=== PATIENT | female | born 1975 | race African-American/Black ===

== ENCOUNTER 2017-10-27 14:28 | Day surgery (SDC) | payer OTHER ==
[2017-10-27] MEDS ORDERED: TRIA1CAP6 PO (15:03)
--- NOTE | 2017-10-28 10:01 | RADRPT ---
EXAM DATE/TIME: 10/27/2017 14:59 [facility] COMPARISON : No previous studies available for comparison. INDICATIONS : Consult for Uterine Fibroid Embolization OBJECTIVE: Temperature: 98.4 Heart Rate: 81 Blood Pressure: 160/96 Respiratory: 20 Oximetry: 98 PNEUMONIA VACCINE: HISTORY OF PRESENT ILLNESS: 41-year-old with known fibroids and heavy menstrual bleeding. PAST MEDICAL HISTORY : 1. Hypertension. 2. anemia PAST SURGICAL HISTORY : 1. 2. bowel perforation with temporary colostomy placement/reversal. SOCIAL HISTORY : No alcohol use. Tobacco; none. ALLERGIES: 1. NKDA MEDICATIONS: Triamterene 50/25 mg q.d. PHYSICAL EXAMINATION: CV: Regular rate and rhythm. Lungs: Clear to auscultation. Abdomen: Soft, non-tender. No masses or organomegaly. Positive bowel sounds. IMAGING STUDIES: Outside ultrasound from the doctor's office were reviewed. ASSESSMENT: Symptomatic uterine fibroids. Patient has had no advanced imaging or uterine biopsy but states that s he did undergo Pap smear in her GYNs office which was reportedly normal. Explained in detail the usu al workup prior to fibroid embolization. Details of the procedure itself were also explained. All que stions were addressed. PLAN: Elective uterine fibroid embolization The TIME SPENT: 20 minutes Abhilash Jimenez MD on October 28, 2017 at 9:54 Board Certified Radiologist. This report was verified electronically.
== END 2017-10-27 15:48 | disposition home or self-care (01) ==
LOC: HROP 14:28 → HRIP 14:29 → HROP 15:48
PROVIDERS: ATTEND Obstetrics & Gynecology
DX: D25.9 Leiomyoma of uterus, unspecified (principal)
CPT/HCPCS: 99213; G0463

== ENCOUNTER 2017-11-10 07:18 | Observation (INO) | payer OTHER ==
[~2017-11-10] VITALS: Ht 160 cm; Wt 113.6 kg
[2017-11-10] VITALS (10 sets, daily range): BP systolic 144–187; BP diastolic 82–99; PULSE 72–88; RESP 18–20; TEMP 97.9–98.1; O2SAT 92–98
[~2017-11-10 07:18] MED LIST: TRIA1CAP6 PO
[2017-11-10] MEDS ORDERED: CHOL1CAP34 PO (07:41)
[2017-11-10] MEDS: SODIUM CHLOR 0.9% 1000 ML INJ 1,000 ML IV SCH ×2 (08:00→18:31)
[2017-11-10] MEDS ORDERED: ceFAZolin 2 GM PREMIX 50 ML IV SCH (08:00)
[2017-11-10] MEDS ORDERED: DIAZEPAM 10 MG TAB PO SCH (08:00)
[2017-11-10] MEDS ORDERED: KETOROLAC TROMETHAMINE 30 MG/ML (IVP) VIAL IV PUSH SCH (08:00)
[2017-11-10 08:10] LABS: AUTOMATED NEUTROPHIL # 3.4 TH/MM3 (1.8-7.7); BASOPHIL # 0.1 TH/MM3 (0-0.2); BASOPHIL % 0.8 % (0.0-2.0); EOSINOPHIL # 0.1 TH/MM3 (0-0.4); EOSINOPHIL % 1.6 % (0.0-4.0); HEMATOCRIT 34.9 % (35.0-46.0); HEMOGLOBIN 11.7 GM/DL (11.6-15.3); LYMPH % 33.8 % (9.0-44.0); LYMPHOCYTE # 2.1 TH/MM3 (1.0-4.8); MEAN CELL VOLUME 70.3 FL (80.0-100.0); MEAN CORPUSCULAR HEMOGLOBIN 23.5 PG (27.0-34.0); MEAN CORPUSCULAR HGB CONC 33.4 % (32.0-36.0); MEAN PLATELET VOLUME 8.3 FL (7.0-11.0); MONO % 9.7 % (0.0-8.0); MONOCYTE # 0.6 TH/MM3 (0-0.9); NEUT % 54.1 % (16.0-70.0); PLATELET COUNT 244 TH/MM3 (150-450); RED BLOOD COUNT 4.96 MIL/MM3 (4.00-5.30); RED CELL DISTRIBUTION WIDTH 19.6 % (11.6-17.2); WHITE BLOOD COUNT 6.3 TH/MM3 (4.0-11.0)
[2017-11-10 08:17] LABS: INTERNATIONAL NORMALIZED RATIO 1.1 RATIO; PROTHROMBIN TIME - PATIENT 11.3 SEC (9.8-11.6)
[2017-11-10 08:45] LABS: BICARBONATE 27.3 MEQ/L (21.0-32.0); CALCIUM 9.1 MG/DL (8.5-10.1); CREATININE 0.8 MG/DL (0.50-1.00)
[2017-11-10] MEDS ORDERED: NALOXONE HCL 0.4 MG/ML AMP IV PUSH PRN (10:45)
[2017-11-10] MEDS ORDERED: MORPHINE SULFATE 30 MG/30 ML PCA IV SCH (10:45)
[2017-11-10] MEDS: ONDANSETRON HCL 4 MG/2 ML VIAL IV PUSH SCH ×2 (10:55→17:57)
[2017-11-10] MEDS ORDERED: MIDAZOLAM HCL 2 MG/2 ML VIAL ONE ×4 (11:38→12:46)
[2017-11-10] MEDS ORDERED: fentaNYL CITRATE 250 MCG/5 ML AMP ONE (11:38)
[2017-11-10] MEDS ORDERED: HYDROmorphone HCL PF 2 MG/ML VIAL ONE (12:38)
[2017-11-10] MEDS ORDERED: ACETAMINOPHEN 325 MG TAB PO PRN (13:45)
--- NOTE | 2017-11-10 13:49 | PD.RAD ---
Post Procedure Progress Note Pre Procedure Diagnosis: (1) Menometrorrhagia (2) Uterine fibroid Post Procedure Diagnosis: (1) Menometrorrhagia (2) Uterine fibroid Procedure Date: Nov 10, 2017 Supervising Radiologist: Abhilash Jimenez Proceduralist/Assist: Tino Judd, RT(R), Winifred Alfred RT(R) Anesthesia: Local, Analgesia, Conscious Sedation Plan of Activity Patient to Unit: ROPU Patient Condition: Good See PACS Report for procedural detail/treatment Vascular-Arterial Procedure Procedure 1 Procedure Site: Abdominal (UFE) Procedure(s): Embolization Access Access Site(s): Right Femoral Artery Closure Site(s): Right vascular closure device (PerClose) Abhilash Jimenez MD Nov 10, 2017 13:49
[2017-11-10] MEDS: PCA - TOTAL MG MORPHINE DELIVERED PER SHIFT SCH ×2 (14:00→22:00)
[2017-11-10] MEDS ORDERED: LEVOFLOXACIN 500 MG TAB PO SCH (15:00)
[2017-11-10] MEDS: KETOROLAC TROMETHAMINE 30 MG/ML (IVP) VIAL IVP SCH ×2 (17:44→23:50)
--- NOTE | 2017-11-10 18:11 | HHI.HP ---
[facility] Ky Almanza MD Admission Diagnosis Diagnoses: Travel History International Travel<30 Days: No Contact w/Intl Traveler <30 Da: No Traveled to Known Affected Are: No History of Present Illness History from patient and review of medical records. Patient came to hospital for embolization of uterine artery secondary to menometrorrhagia from fibroids. She underwent the procedure by Dr. Jimenez Postoperatively, she continues to have severe pain . She reports that her pain is in her right lower quadrant abdomen area. Denies any pain at the actual insertion site. Patient is admitted for pain control. Apart from the pain, on review of system, patient denies any other symptoms. Review of Systems Except as stated in HPI: all other systems reviewed are Neg Past Family Social History Past Medical History htn obesity chronic anemia thalassemia minor iron def anemia uterine fibroid Past Surgical History Bowel perforation requiring colostomy and reversal of colostomy Allergies: Coded Allergies: No Known Allergies (Unverified , 11/10/17) Family History mom- htn, afib, prediabetic father- cancer of prostate brother- brochitis Social History denies smoking/ etoh abuse/ drug abuse Physical Exam Vital Signs Vital Signs Date Time Temp Pulse Resp B/P (MAP) Pulse Ox O2 Delivery O2 Flow Rate FiO2 11/10/17 16:25 72 20 144/84 (104) 96 11/10/17 15:55 82 20 159/93 (115) 93 11/10/17 15:25 82 20 159/90 (113) 97 11/10/17 15:00 18 11/10/17 14:55 77 20 178/89 (118) 96 11/10/17 14:40 88 20 166/91 (116) 96 11/10/17 14:10 81 20 186/99 (128) 96 11/10/17 13:55 97.9 88 20 187/92 (123) 97 11/10/17 07:40 98.1 78 20 158/82 (107) 92 Physical Exam GENERAL: This is a well-nourished, well-developed patient, in moderate distress secondary to pain. SKIN: No rashes, ecchymoses or lesions. Cool and dry. HEAD: Atraumatic. Normocephalic. No temporal or scalp tenderness. EYES:No scleral icterus. No injection or drainage. ENT: Nose without bleeding, purulent drainage or septal hematoma. Airway patent. NECK: Trachea midline. No JVD Supple, nontender, no meningeal signs. CARDIOVASCULAR: Regular rate and rhythm without murmurs, gallops, or rubs. RESPIRATORY: Clear to auscultation. Breath sounds equal bilaterally. No wheezes , rales, or rhonchi. GASTROINTESTINAL: Abdomen soft, non-tender, nondistended. No guarding. MUSCULOSKELETAL: Extremities without clubbing, cyanosis, or edema.No calf tenderness. NEUROLOGICAL: Awake and alert. Motor and sensory grossly within normal limits. Normal speech. Laboratory Laboratory Tests Test 11/10/17 07:55 White Blood Count 6.3 Red Blood Count 4.96 Hemoglobin 11.7 Hematocrit 34.9 Mean Corpuscular Volume 70.3 Mean Corpuscular Hemoglobin 23.5 Mean Corpuscular Hemoglobin Concent 33.4 Red Cell Distribution Width 19.6 Platelet Count 244 Mean Platelet Volume 8.3 Neutrophils (%) (Auto) 54.1 Lymphocytes (%) (Auto) 33.8 Monocytes (%) (Auto) 9.7 Eosinophils (%) (Auto) 1.6 Basophils (%) (Auto) 0.8 Neutrophils # (Auto) 3.4 Lymphocytes # (Auto) 2.1 Monocytes # (Auto) 0.6 Eosinophils # (Auto) 0.1 Basophils # (Auto) 0.1 CBC Comment DIFF FINAL Differential Comment Prothrombin Time 11.3 Prothromb Time International Ratio 1.1 Activated Partial Thromboplast Time 28.0 Blood Urea Nitrogen 12 Creatinine 0.80 Random Glucose 104 Calcium Level 9.1 Sodium Level 138 Potassium Level 3.8 Chloride Level 102 Carbon Dioxide Level 27.3 Anion Gap 9 Estimat Glomerular Filtration Rate 97 Result Diagram: 11/10/17 0755 11/10/17 0755 Caprini VTE Risk Assessment Caprini VTE Risk Assessment: Mod/High Risk (score >= 2) Caprini Risk Assessment Model Point Value = 1 Point Value = 2 Point Value = 3 Point Value = 5 Age 41-60 Minor surgery BMI > 25 kg/m2 Swollen legs Varicose veins or History of unexplained or recurrent spontaneous Oral contraceptives or hormone replacement Sepsis (< 1 month) Serious lung disease, including pneumonia (< 1 month) Abnormal pulmonary function Acute myocardial infarction Congestive heart failure (< 1 month) History of inflammatory bowel disease Medical patient at bed rest Age 61-74 Arthroscopic surgery Major open surgery (> 45 min) Laparoscopic surgery (> 45 min) Malignancy Confined to bed (> 72 hours) Immobilizing plaster cast Central venous access Age >= 75 History of VTE Family history of VTE Factor V Leiden Prothrombin [id number] Lupus anticoagulant Anticardiolipin antibodies Elevated serum homocysteine Heparin-induced thrombocytopenia Other congenital or acquired thrombophilia Stroke (< 1 month) Elective arthroplasty Hip, pelvis, or leg fracture Acute spinal cord injury (< 1 month) Prophylaxis Regimen Total Risk Factor Score Risk Level Prophylaxis Regimen 0-1 Low Early ambulation 2 Moderate Order ONE of the following: *Sequential Compression Device (SCD) *Heparin 5000 units SQ BID 3-4 Higher Order ONE of the following medications: *Heparin 5000 units SQ TID *Enoxaparin/Lovenox 40 mg SQ daily (WT < 150 kg, CrCl > 30 mL/min) *Enoxaparin/Lovenox 30 mg SQ daily (WT < 150 kg, CrCl > 10-29 mL/min) *Enoxaparin/Lovenox 30 mg SQ BID (WT < 150 kg, CrCl > 30 mL/min) AND/OR *Sequential Compression Device (SCD) 5 or more Highest Order ONE of the following medications: *Heparin 5000 units SQ TID (Preferred with Epidurals) *Enoxaparin/Lovenox 40 mg SQ daily (WT < 150 kg, CrCl > 30 mL/min) *Enoxaparin/Lovenox 30 mg SQ daily (WT < 150 kg, CrCl > 10-29 mL/min) *Enoxaparin/Lovenox 30 mg SQ BID (WT < 150 kg, CrCl > 30 mL/min) AND *Sequential Compression Device (SCD) Assessment and Plan Assessment and Plan Impression: Uncontrolled pain status post uterine artery embolization Uterine fibroids Iron deficiency anemia Thalassemia minor History of hypertension Plan: Patient is currently on morphine HUMAN RESOURCES COMPENSATION ANALYST. She is able to get to 1 mg IV morphine every 10 minutes with a lockout of 24 mg total in 4 hours. We will put additional oxycodone 10 mg p.o. every 4 hours as needed for pain greater than 5. May give this together with the HUMAN RESOURCES COMPENSATION ANALYST. Nausea control with Zofran. Resume home meds. Patient is on levofloxacin 500 mg p.o. daily per interventional radiology. Will continue. DVT prophylaxis with SCD. Discussed Condition With Patient, her mother at the bedside Amy Morales MD Nov 10, 2017 18:11
[2017-11-10] MEDS ORDERED: ONDANSETRON HCL 4 MG/2 ML VIAL IV PUSH PRN (18:30)
[2017-11-11] VITALS: BP 161/77; PULSE 79; RESP 18; TEMP 98.2; O2SAT 99
[2017-11-11 04:00] VITALS: BP 156/73; PULSE 76; RESP 18; TEMP 97.6; O2SAT 95
[2017-11-11 05:52] VITALS: RESP 16
[2017-11-11] MEDS: PCA - TOTAL MG MORPHINE DELIVERED PER SHIFT SCH (05:52)
[2017-11-11] MEDS: KETOROLAC TROMETHAMINE 30 MG/ML (IVP) VIAL IVP SCH ×2 (05:53→12:09)
[2017-11-11] MEDS ORDERED: TRIAMTERENE PO SCH (09:00)
--- NOTE | 2017-11-11 12:35 | HHI.PR ---
Subjective Remarks Patient reports she is feeling much better today. Pain is much better controlled. Has been off morphine PHARMACEUTICAL LABORATORY TECHNICIAN. Eager to go home. Objective Vitals Vital Signs Date Time Temp Pulse Resp B/P (MAP) Pulse Ox O2 Delivery O2 Flow Rate FiO2 11/11/17 05:52 16 11/11/17 04:00 97.6 76 18 156/73 (100) 95 11/11/17 00:00 98.2 79 18 161/77 (105) 99 11/10/17 22:00 16 11/10/17 20:00 98.1 77 18 181/90 (120) 97 11/10/17 18:48 97.9 75 18 183/86 (118) 98 11/10/17 16:25 72 20 144/84 (104) 96 11/10/17 15:55 82 20 159/93 (115) 93 11/10/17 15:25 82 20 159/90 (113) 97 11/10/17 15:00 18 11/10/17 14:55 77 20 178/89 (118) 96 11/10/17 14:40 88 20 166/91 (116) 96 11/10/17 14:10 81 20 186/99 (128) 96 11/10/17 13:55 97.9 88 20 187/92 (123) 97 I/O 11/10/17 11/10/17 11/10/17 11/11/17 11/11/17 11/11/17 07:00 15:00 23:00 07:00 15:00 23:00 Output Total 1150 ml Balance -1150 ml Output Urine Total 1000 ml Emesis 150 ml # Voids 3 Result Diagram: 11/10/17 0755 11/10/17 0755 Objective Remarks GENERAL: This is a well-nourished, well-developed patient, in no apparent distress. CARDIOVASCULAR: Normal rate and regular rhythm without murmurs, gallops, or rubs. RESPIRATORY: Good respiratory efforts. Breath sounds equal and clear to auscultation bilaterally. GASTROINTESTINAL: Abdomen soft, non-tender, non-distended. Normal active bowel sounds MUSCULOSKELETAL: Extremities without cyanosis, or edema. NEURO: Alert & Oriented x4 to person, place, time, situation. Moves all ext x4 PSYCH: Appropriate mood and affect. A/P Assessment and Plan 41-year-old female admitted for uterine artery embolization. However after the procedure, the patient was experiencing intractable abdominal pain. She was admitted for pain control. Pain controlled with morphine PHARMACEUTICAL LABORATORY TECHNICIAN which was quickly weaned off. The patient significantly improved. She can be discharged home to follow-up outpatient Discharge Planning Discharge home in good condition Activity: Regular as tolerated Diet: Heart healthy Meds: Resume home medications Follow-up with: PCP and ART OBJECTS SALESPERSON. Lisandro Chappell MD Nov 11, 2017 12:35
--- NOTE | 2017-11-11 14:07 | RADRPT ---
EXAM DATE/TIME: 11/10/2017 11:51 [facility] COMPARISON: No previous studies available for comparison. INDICATIONS : Patient presents with fibroids and heavy mentrual bleeding here for a uterine artery embolization. MEDICAL HISTORY : Anemia HTN SURGICAL HISTORY : Colostomy and Reversal Colon Resection ENCOUNTER: Initial ACUITY: 2 months PAIN SCORE: 0/10 FLUORO TIME: 20.5 minutes IMAGE SERIES: 16 ACCESS SITE: Right Femoral artery SEDATION TIME: 75 minutes CONTRAST: 1.) 200 cc Visipaque (iodixanol) MEDICATION(S): 1.) 7.5 mg midazolam (Versed) IV 2.) 350 mcg fentanyl (Sublimaze) IV 1.) Right common femoral artery Perclose 6F PROCEDURE : 1. Ultrasound-guided puncture of the right common femoral artery. 2. Left internal iliac artery arteriogram. 3. Left uterine artery arteriogram. 4. Embolization of the left uterine artery. 5. Right internal iliac artery arteriogram. 6. Right uterine artery arteriogram. 7. Embolization of the right uterine artery. 8. Conscious sedation with continuous EKG and oximetry monitoring. The risks, benefits and alternatives to the procedure were explained and verbal and written consent w as obtained. The site was prepped in sterile fashion. Full sterile technique was used, including ca p, mask, sterile gloves and gown and a large sterile sheet. Hand hygiene and 2% chlorhexidine and/or betadine/alcohol prep was utilized per protocol for cutaneous antisepsis. Sterile gel and sterile p robe cover were utilized for ultrasound guidance. The skin and subcutaneous tissues were infiltrated with local anesthetic solution. With ultrasound and fluoroscopic guidance the right femoral artery was punctured. An Omni Flush cath eter was placed over aortic bifurcation into the left internal iliac artery where imaging was perform ed to identify the uterine artery. The uterine artery was subsequent catheterized and angiography wa s performed demonstrating multiple feeding vessels supplying the uterine fibroids. Embolization was performed using the prescribed size of polyvinyl alcohol and Gelfoam slurry to complete stasis. Foll owup angiography from the internal iliac vessel demonstrates complete stasis and no antegrade flow wi thin the left uterine artery. An Omni Flush catheter was then used to select the ipsilateral right internal iliac artery where imag ing was performed to identify the uterine artery. The uterine artery was subsequently catheterized a nd angiography was performed demonstrating multiple feeding vessels supplying the uterine fibroids. Embolization was performed using the prescribed dose of polyvinyl alcohol and Gelfoam slurry to compl ete stasis. Followup angiography from the internal iliac vessel demonstrates complete stasis and no antegrade flow within the left uterine artery. Conscious sedation was performed with the prescribed dosages and duration as above in the presence of an independent trained radiology nurse to assist in the monitoring of the patient. EKG and oximetry remained stable throughout the procedure. The patient tolerated the procedure well and there were n o complications. The patient was sent to post anesthesia recovery in stable condition. CONCLUSION: Uncomplicated uterine artery embolization as above. Abhilash Jimenez MD on November 11, 2017 at 13:43 Board Certified Radiologist. This report was verified electronically.
== END 2017-11-11 13:07 | disposition home or self-care (01) ==
LOC: HROP 07:18 → HRIP 07:19 → N05B 17:56 → HROP 18:25
PROVIDERS: ADMIT Family Medicine; ATTEND Family Medicine
DX: G89.18 Other acute postprocedural pain (principal); D25.9 Leiomyoma of uterus, unspecified; D50.9 Iron deficiency anemia, unspecified; N92.1 Excessive and frequent menstruation with irregular cycle; D56.3 Thalassemia minor; I10 Essential (primary) hypertension; R11.0 Nausea; E66.9 Obesity, unspecified
CPT/HCPCS: 36247; 37243; 75736; 75774; 76937; 80048; 85025; 85610; 85730; 96374; 96376; 99152; 99153; C1760; C1769; C1887; C1894; G0378; J0690; J1170; J1885; J2250; J2270; J2405; J3010; J7030

== ENCOUNTER 2017-11-17 13:18 | Day surgery (SDC) | payer OTHER ==
[~2017-11-17 13:18] MED LIST changes: +CHOL1CAP34 PO
[2017-11-17 13:40] VITALS: BP 144/94; PULSE 72; RESP 18; TEMP 97.9; O2SAT 98
== END 2017-11-17 15:23 | disposition home or self-care (01) ==
LOC: HROP 13:18 → HRIP 13:21 → HROP 15:23
PROVIDERS: ATTEND Radiology Body Imaging
DX: D25.9 Leiomyoma of uterus, unspecified (principal)